=== PATIENT | female | born 1990 | race Caucasian/White ===

== ENCOUNTER 2018-08-03 21:34 | Emergency (ER) | payer OTHER, SELFPAY | END 2018-08-03 22:05 | disposition left against medical advice (07) | LOC: MADERS 21:34 | DX: J02.9 Acute pharyngitis, unspecified (principal); F17.210 Nicotine dependence, cigarettes, uncomplicated | CPT/HCPCS: 99281 ==

== ENCOUNTER 2019-06-09 09:11 | Emergency (ER) | payer SELFPAY ==
[2019-06-09] MEDS ORDERED: Ketorolac Tromethamine 30 MG/ML VIAL ONE (09:46)
[2019-06-09] MEDS ORDERED: Sodium Chloride 0.9% 1,000 ML ONE (09:46)
[2019-06-09] MEDS ORDERED: diphenhydrAMINE 50 MG/ML VIAL ONE (09:46)
== END 2019-06-09 11:10 | disposition home or self-care (01) ==
LOC: MADERS 09:11
DX: R51 Headache (principal); E66.9 Obesity, unspecified; F17.210 Nicotine dependence, cigarettes, uncomplicated
CPT/HCPCS: 96361; 96374; 96375; 99406; J1200; J1885; J7050

== ENCOUNTER 2020-11-09 19:51 | Emergency (ER) | payer SELFPAY ==
[2020-11-09] MEDS ORDERED: Albuterol Sulfate 2.5 mg/3 ml Neb ONE (20:28)
[2020-11-09] MEDS ORDERED: predniSONE 20 MG TAB ONE (20:28)
--- NOTE | 2020-11-09 20:33 | RAD ---
EXAM: CHEST TWO VIEWS 11/09/2020 8:29 PM HISTORY: Coughing and wheezing COMPARISON: None. FINDINGS: Lungs: There is a skinfold overlying the lateral aspect of the right hemithorax. There are pulmonary markings seen projecting to the chest wall. No definite pneumothorax is evident. No airspace consolidation is evident. Heart: Normal in size and contour. Pulmonary Vessels: Normal. Costophrenic Angles: Clear. Pneumothorax: None. Osseous Structures: Intact. Additional Findings: None. IMPRESSION: No significant acute intrathoracic disease.
== END 2020-11-09 21:13 | disposition home or self-care (01) ==
LOC: MADERS 19:51
DX: J20.9 Acute bronchitis, unspecified (principal); E66.9 Obesity, unspecified; F17.210 Nicotine dependence, cigarettes, uncomplicated; Z79.899 Other long term (current) drug therapy
CPT/HCPCS: 71046; J7512; J7611

== ENCOUNTER 2021-04-12 02:29 | Emergency (ER) | payer SELFPAY ==
[2021-04-12] MEDS ORDERED: Ketorolac Tromethamine 30 MG/ML VIAL ONE (03:02)
[2021-04-12] MEDS ORDERED: Sodium Chloride 0.9% 1,000 ML ONE (03:02)
[2021-04-12 03:08] LABS: #Basophils 0.1 thou/uL (0.0-0.2); #Eosinphils 0.2 thou/uL (0.0-0.7); #Lymphocytes 2.5 thou/uL (1.20-3.40); #Monocytes 0.8 thou/uL (0.11-0.59); #Neutrophils 5.2 thou/uL (1.40-6.50); %Basophils 0.8 % (0.0-1.0); %Eosinophils 2.3 % (0.0-10.0); %Lymphocytes 28.2 % (21.0-51.0); %Monocytes 9.3 % (0.0-10.0); %Neutrophils 59.5 % (42.0-75.0); Hemoglobin 14.2 g/dL (12.0-16.0); Mean Corpuscular Hemoglobin 31.3 pg (27.0-31.0); Mean Corpuscular Volume 94.9 fL (78.0-98.0); Mean Platelet Volume 8.6 fL (7.4-10.4); Platelet Count 262 thou/uL (130-400); RBC Distribution Width 13.2 % (11.5-14.5); Red Blood Cell (RBC) Count 4.53 mill/uL (4.20-5.40); White Blood Cell (WBC) Count 8.8 thou/uL (4.8-10.8)
[2021-04-12 03:22] LABS: BHCG - Serum Negative (NEGATIVE); Pregs Control Background? CLEAR/WHITE (CLR/WHITE); Pregs Control Bar Appear? YES (CONTROL BAR)
[2021-04-12 03:25] LABS: ALT (SGPT) 10 U/L (8-55); AST (SGOT) 12 U/L (5-34); Albumin 4.1 g/dL (3.5-5.0); Alkaline Phosphatase 57 U/L (40-110); Anion Gap 12 mmol/L (10-20); BUN (Urea Nitrogen) 13 mg/dL (7.0-18.7); Bilirubin, Total 0.2 mg/dL (0.2-1.2); Calc. Creatinine Clearance 0 mL/min (70-130); Calcium 9.4 mg/dL (7.8-10.44); Carbon Dioxide 25 mmol/L (22-29); Chloride 107 mmol/L (98-107); Globulin 2.7 g/dL (2.4-3.5); Glucose 106 mg/dL (70-105); Lipase 8 U/L (8-78); Potassium 3.7 mmol/L (3.5-5.1); Protein, Total 6.8 g/dL (6.0-8.3); Sodium 140 mmol/L (136-145)
[2021-04-12 04:02] LABS: Bilirubin Negative (Negative); Blood, Urine Trace (Negative); Clarity Clear (Clear); Glucose, Urine (Dipstick) Negative (Negative); Ketone, Urine Negative (Negative); Leukocyte Negative (Negative); Nitrite Negative (Negative); Protein, Urine (Dipstick) Negative (Neg-Trace); Urobilinogen 0.2 mg/dL (Less than 2)
[2021-04-12 04:03] LABS: Specific Gravity, Urine 1.025 (1.005-1.030)
[2021-04-12 04:07] LABS: Bacteria/HPF Rare-Few HPF (None Seen); Mucous/LPF 1+ LPF (<2+); WBC/HPF 0-3 HPF (0-3)
== END 2021-04-12 04:11 | disposition home or self-care (01) ==
LOC: MADERS 02:29
DX: R10.31 Right lower quadrant pain (principal); F17.210 Nicotine dependence, cigarettes, uncomplicated; K58.9 Irritable bowel syndrome, unspecified; Z79.899 Other long term (current) drug therapy
CPT/HCPCS: 80053; 81003; 81015; 83690; 84703; 85025; 96374; J1885; J7050

== ENCOUNTER 2021-10-29 12:27 | Emergency (ER) | payer MEDICAID, SELFPAY | END 2021-10-29 14:30 | disposition home or self-care (01) | LOC: MADERS 12:27 | DX: K60.0 Acute anal fissure (principal); K59.00 Constipation, unspecified; F17.210 Nicotine dependence, cigarettes, uncomplicated | CPT/HCPCS: 99283 ==

== ENCOUNTER 2024-05-07 16:06 | Emergency (ER) | payer MEDICAID, OTHER, SELFPAY ==
[2024-05-07] MEDS ORDERED: Mag-Al 1200 mg/1200 mg/30 ML UDCUP ONE (16:38)
[2024-05-07] MEDS ORDERED: Pantoprazole DR 40 MG TAB ONE (16:38)
[2024-05-07] MEDS ORDERED: Lidocaine Viscous Sol 2% 15 ml UD Cup ONE (16:38)
[2024-05-07 16:54] LABS: #Basophils 0.1 thou/uL (0.0-0.2); #Eosinphils 0.1 thou/uL (0.0-0.7); #Lymphocytes 2.2 thou/uL (1.20-3.40); #Monocytes 0.6 thou/uL (0.11-0.59); #Neutrophils 6.7 thou/uL (1.40-6.50); %Basophils 0.5 % (0.0-1.0); %Eosinophils 1.1 % (0.0-10.0); %Lymphocytes 22.5 % (21.0-51.0); %Monocytes 5.8 % (0.0-10.0); Hemoglobin 15.1 g/dL (12.0-16.0); Mean Corpuscular HGB CONC 32.8 g/dL (32.0-36.0); Mean Corpuscular Hemoglobin 30.7 pg (27.0-31.0); Mean Corpuscular Volume 93.7 fl (78.0-98.0); Mean Platelet Volume 6.4 fL (7.4-10.4); Platelet Count 289 10x3/uL (130-400); RBC Distribution Width 12.6 % (11.5-14.5); Red Blood Cell (RBC) Count 4.91 mill/uL (4.20-5.40); White Blood Cell (WBC) Count 9.6 10x3/uL (4.8-10.8)
[2024-05-07 17:08] LABS: ALT (SGPT) 17 U/L (8-55); AST (SGOT) 15 U/L (5-34); Albumin 3.7 g/dL (3.5-5.0); Alkaline Phosphatase 73 U/L (40-110); Anion Gap 14 mmol/L (10-20); BUN (Urea Nitrogen) 11 mg/dL (7.0-18.7); Bilirubin, Total 0.5 mg/dL (0.2-1.2); Calc. Creatinine Clearance 0 mL/min (70-130); Calcium 8.9 mg/dL (7.8-10.44); Carbon Dioxide 20 mmol/L (22-29); Chloride 107 mmol/L (98-107); Estimated GFR 105; Globulin 3.2 g/dL (2.4-3.5); Glucose 88 mg/dL (70-105); Protein, Total 6.9 g/dL (6.0-8.3); Sodium 137 mmol/L (136-145)
[2024-05-07 17:09] LABS: Troponin I Less than 0.010 ng/mL (< 0.028)
== END 2024-05-07 17:43 | disposition home or self-care (01) ==
LOC: MADERS 16:06
DX: K21.9 Gastro-esophageal reflux disease without esophagitis (principal); F17.210 Nicotine dependence, cigarettes, uncomplicated
CPT/HCPCS: 36415; 71045; 80053; 84484; 85025; 93005

== ENCOUNTER 2024-09-15 15:27 | Emergency (ER) | payer SELFPAY ==
[2024-09-15 17:26] LABS: ALT (SGPT) 17 U/L (8-55); AST (SGOT) 18 U/L (5-34); Albumin 3.5 g/dL (3.5-5.0); Alkaline Phosphatase 67 U/L (40-110); Anion Gap 12 mmol/L (10-20); BUN (Urea Nitrogen) 12 mg/dL (7.0-18.7); Bilirubin, Total 0.4 mg/dL (0.2-1.2); Calc. Creatinine Clearance 0 mL/min (70-130); Calcium 8.9 mg/dL (7.8-10.44); Carbon Dioxide 22 mmol/L (22-29); Chloride 107 mmol/L (98-107); Estimated GFR 117; Globulin 3.4 g/dL (2.4-3.5); Glucose 94 mg/dL (70-105); Magnesium 2.4 mg/dL (1.6-2.6); Potassium 4.4 mmol/L (3.5-5.1); Protein, Total 6.9 g/dL (6.0-8.3); Sodium 137 mmol/L (136-145)
[2024-09-15 17:27] LABS: Hematocrit 47.9 % (36.0-47.0); Lymphocytes 23 % (21-51); MDiff Complete? YES; Mean Corpuscular HGB CONC 31.3 g/dL (32.0-36.0); Mean Corpuscular Volume 95.8 fl (78.0-98.0); Monocytes 8 % (0-10); Neutrophil 62 % (42-75); Platelet Adequacy Comment Appears Adequate; Platelet Count 310 10x3/uL (130-400); White Blood Cell (WBC) Count 8.1 10x3/uL (4.8-10.8)
[2024-09-15 17:29] LABS: Troponin I Less than 0.010 ng/mL (< 0.028)
== END 2024-09-15 17:44 | disposition home or self-care (01) ==
LOC: MADERS 15:27
DX: R00.2 Palpitations (principal); F17.210 Nicotine dependence, cigarettes, uncomplicated
CPT/HCPCS: 36415; 80053; 83735; 84484; 85025; 93005; 99285

== ENCOUNTER 2025-06-18 12:16 | Emergency (ER) | payer OTHER, SELFPAY | END 2025-06-18 13:25 | disposition home or self-care (01) | LOC: MADERS 12:16 | DX: J02.9 Acute pharyngitis, unspecified (principal); F17.210 Nicotine dependence, cigarettes, uncomplicated | CPT/HCPCS: 87081; 87428; 87430; 99283 ==